=== PATIENT | male | born 1960 | race Caucasian/White ===

== ENCOUNTER 2017-02-25 16:44 | Inpatient (IN) | payer OTHER ==
[~2017-02-25] VITALS: Ht 188 cm; Wt 115.7 kg
--- NOTE | 2017-02-25 17:22 | Emergency Room Report ---
History of Present Illness General Chief Complaint: To Be Triaged Present Illness HPI 56 y/o male c/o request to go to ER by PCP (Dr. Roland Bose MD) for referral to social services specialist. 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 Patient was told to go to [facility] where is received a transfer for treatment of his tumors to [facility]. Patient states [facility] is going to shut down so he left that facility and is now here so he can speak with a social services specialist for placement. Patient states treatments for his tumors are not working. States he's currently on Cipro 500mg 1 tab PO BID and Keflex 500mg 1 tab PO BID. Patient is taking tramadol 50mg w/o relief of sxs. Allergies: Coded Allergies: No Known Allergies (Unverified , 02/25/17) Patient History Past Medical History: see triage record Past Surgical History: none Pertinent Family History: none Immunizations: UTD Reviewed Nursing Documentation: PMH: Agreed, PSxH: Agreed Review of Systems All Other Systems: negative except mentioned in HPI Physical Exam Vital Signs Date Time Temp Pulse Resp B/P (MAP) Pulse Ox O2 Delivery O2 Flow Rate FiO2 02/25/17 17:10 98.4 88 14 128/80 96 Room Air Sp02 EP Interpretation: reviewed, normal General Appearance: no apparent distress, alert, GCS 15, non-toxic Head: normocephalic, atraumatic Eyes: bilateral eye normal inspection, bilateral eye PERRL ENT: hearing grossly normal, normal pharynx, no angioedema, normal voice Neck: full range of motion, supple/symm/no masses Respiratory: chest non-tender, lungs clear, normal breath sounds, speaking full sentences Cardiovascular #1: normal peripheral pulses, regular rate, rhythm, no edema Musculoskeletal: back normal, gait/station normal, normal range of motion, non- tender, calf tenderness Neurologic: alert, oriented x3, responsive, motor strength/tone normal, sensory intact, speech normal Psychiatric: judgement/insight normal, memory normal, mood/affect normal, no suicidal/homicidal ideation Skin: normal color, no rash, warm/dry, well hydrated, other - two ulcers with local erythema and induration or right ankle / heal and one on left calf. +TTP Lymphatic: no adenopathy Medical Decision Making PA Attestation Dr. Turner is my supervising physician with whom patient management has been discussed with. Diagnostic Impression: Primary Impression: Cellulitis and abscess of left lower extremity Additional Impression: Cellulitis and abscess of right lower extremity ER Course Pt. presents to the ED c/o tumors Ddx considered but are not limited to dermatitis, insect sting, viral exanthem, herpez zoster, cellulitis, abscess Vital signs: are WNL, pt. is afebrile H&PE are most consistent with cellulitis ORDERS / ED INTERVENTIONS: My Orders - LIZ SPRAGUE Procedure Category Date Status Time Cbc W/ Differential LAB 02/25/17 Complete 17:29 CMP LAB 02/25/17 Complete 17:29 Culture Blood NICO 02/25/17 In Process 17:29 Culture Wound W Gram NICO 02/25/17 In Process Stain 17:29 Vancomycin PHA 02/25/17 Complete (Vancomycin) 17:30 Morphine Sulfate PHA 02/25/17 Complete (Morphine Sulfate) 17:30 Vancomycin PHA 02/25/17 Complete (Vancomycin) 18:28 Patient has wounds that are not responding to keflex and cipro and will need IV antibiotics. Patient admitted to [facility] and care transferred to Dr. Meléndez at 6 :59pm Disposition: ADMITTED INPATIENT Condition: Serious Scripts No Active Prescriptions or Reported Meds LIZ SPRAGUE Feb 25, 2017 17:22
[2017-02-25] MEDS ORDERED: Vancomycin 1 GM in NS 275 ML IV ONE (17:30)
[2017-02-25] MEDS ORDERED: Morphine Sulfate 4mg/ml Inj IVP ONE (17:30)
[2017-02-25 18:10] LABS: MEAN CORPUSCULAR HEMOGLOBIN 30.3 PG (27.0-31.0); MEAN CORPUSCULAR HGB CONC 33.3 G/DL (32.0-36.0); MEAN CORPUSCULAR VOLUME 91 FL (80-99); MEAN PLATELET VOLUME 5.6 FL (6.5-10.1); PLATELET COUNT 301 K/UL (150-450); RED BLOOD COUNT 5.04 M/UL (4.70-6.10); RED CELL DISTRIBUTION WIDTH 11.5 % (11.6-14.8); WHITE BLOOD COUNT 12.1 K/UL (4.8-10.8)
[2017-02-25 18:20] VITALS: BP 128/80
[2017-02-25 18:21] LABS: ANION GAP 6 mmol/L (5-15); CALCIUM 8.6 MG/DL (8.5-10.1); CARBON DIOXIDE 29 MMOL/L (21-32); CHLORIDE 102 MMOL/L (98-107); CREATININE 1.3 MG/DL (0.55-1.30); GLOMERULAR FILTRATION RATE 56.7 mL/min (>60); POTASSIUM 4.5 MMOL/L (3.5-5.1); SODIUM 137 MMOL/L (136-145)
[2017-02-25 18:26] LABS: ALANINE AMINOTRANSFERASE 22 U/L (12-78); ALBUMIN/GLOBULIN RATIO 0.9 (1.0-2.7); ASPARTATE AMINO TRANSFERASE 21 U/L (15-37); TOTAL PROTEIN 7.4 G/DL (6.4-8.2)
[2017-02-25] MEDS ORDERED: Vancomycin 1gm inj IVPB ONE (18:28)
[2017-02-25 19:07] LABS: EOSINOPHILS % (MANUAL) 24 % (0-3); LYMPHOCYTES % (MANUAL) 20 % (20-45); NEUTROPHILS % (MANUAL) 48 % (45-75); PLATELET MORPHOLOGY NORMAL; TOTAL CELLS COUNTED 100
[2017-02-25 19:08] LABS: REACTIVE LYMPHOCYTES OCCASIONAL
[2017-02-25 19:37] LABS: BAND NEUTROPHILS % (MANUAL) 0 % (0-8); BASOPHILS % (MANUAL) 0 % (0-2); PLATELET ESTIMATE ADEQUATE
[2017-02-25 21:55] VITALS: BP 119/70
[2017-02-25] MEDS ORDERED: Miralax 17gm pkt ORAL PRN (22:15)
[2017-02-25] MEDS ORDERED: Albuterol/Ipratropium 3ml neb HHN PRN (22:15)
[2017-02-25] MEDS ORDERED: Nitroglycerin Subl 0.4mg tab SL PRN (22:15)
[2017-02-26] MEDS ORDERED: Vancomycin 1 GM in D5W 275 ML IV SCH (00:30)
[2017-02-26 00:36] VITALS: BP 112/63
[2017-02-26 04:45] VITALS: BP 122/71
[2017-02-26] MEDS: Vancomycin 1.5 GM/D5W 250ML IVPB SCH ×2 (06:15→17:56)
[2017-02-26 08:00] VITALS: BP 108/66
[2017-02-26 08:41] LABS: MEAN CORPUSCULAR HEMOGLOBIN 31.1 PG (27.0-31.0); MEAN CORPUSCULAR HGB CONC 34.2 G/DL (32.0-36.0); MEAN CORPUSCULAR VOLUME 91 FL (80-99); MEAN PLATELET VOLUME 5.8 FL (6.5-10.1); PLATELET COUNT 272 K/UL (150-450); RED BLOOD COUNT 4.81 M/UL (4.70-6.10); RED CELL DISTRIBUTION WIDTH 11.5 % (11.6-14.8); WHITE BLOOD COUNT 11.2 K/UL (4.8-10.8)
[2017-02-26] MEDS: Cefepime HCl 2 GM in D5W 110 ML IV SCH ×2 (09:10→20:50)
[2017-02-26] MEDS: Heparin 5000 units/ml inj SUBQ SCH ×2 (09:11→20:47)
[2017-02-26 09:42] LABS: ALANINE AMINOTRANSFERASE 19 U/L (12-78); ALBUMIN/GLOBULIN RATIO 0.9 (1.0-2.7); ANION GAP 10 mmol/L (5-15); ASPARTATE AMINO TRANSFERASE 22 U/L (15-37); CALCIUM 8.4 MG/DL (8.5-10.1); CARBON DIOXIDE 25 MMOL/L (21-32); CHLORIDE 105 MMOL/L (98-107); CREATININE 1.2 MG/DL (0.55-1.30); GLOMERULAR FILTRATION RATE > 60 mL/min (>60); POTASSIUM 4.4 MMOL/L (3.5-5.1); SODIUM 139 MMOL/L (136-145); TOTAL PROTEIN 6.8 G/DL (6.4-8.2)
[2017-02-26 10:12] LABS: BAND NEUTROPHILS % (MANUAL) 0 % (0-8); BASOPHILS % (MANUAL) 0 % (0-2); EOSINOPHILS % (MANUAL) 17 % (0-3); LYMPHOCYTES % (MANUAL) 22 % (20-45); NEUTROPHILS % (MANUAL) 57 % (45-75); PLATELET ESTIMATE ADEQUATE; PLATELET MORPHOLOGY NORMAL; TOTAL CELLS COUNTED 100
--- NOTE | 2017-02-26 10:47 | History and Physical ---
History of Present Illness General Date patient seen: Feb 26, 2017 Reason for Hospitalization: General Complaint Present Illness HPI 56 year old male with hx of lymphedema of tumors, 2 in right LE and 1 in LLE presented to ER with CC of redness and swelling areas in both feet. he's currently on Cipro 500mg 1 tab PO BID and Keflex 500mg 1 tab PO BID. Apparently oral abx are not effective. Allergies: Coded Allergies: No Known Allergies (Unverified , 02/25/17) Medication History No Active Prescriptions or Reported Meds Patient History Healthcare decision maker Resuscitation status Advanced Directive on File Past Medical/Surgical History Past Medical/Surgical History: (1) Cellulitis and abscess of right lower extremity Review of Systems Constitutional: Reports: no symptoms All Other Systems: negative except mentioned in HPI Physical Exam General Appearance: WD/WN Lines, tubes and drains: peripheral, central line HEENT: normocephalic, atraumatic Neck: non-tender, normal alignment Respiratory/Chest: chest wall non-tender, lungs clear Breasts: no masses Cardiovascular/Chest: normal peripheral pulses Abdomen: normal bowel sounds Genitourinary/Rectal: normal genital exam Extremities: normal range of motion Last 24 Hour Vital Signs Date Time Temp Pulse Resp B/P (MAP) Pulse Ox O2 Delivery O2 Flow Rate FiO2 02/26/17 08:00 98.3 64 18 108/66 97 Room Air 02/26/17 07:25 67 20 Room Air 21 02/26/17 04:45 98.2 72 20 122/71 95 Room Air 02/26/17 00:36 98.1 68 21 112/63 96 Room Air 02/25/17 21:55 98.1 77 19 119/70 95 Room Air 02/25/17 21:30 98 16 125/79 98 02/25/17 19:22 98.4 02/25/17 18:20 98.4 14 128/80 96 Room Air 02/25/17 17:10 98.4 88 14 128/80 96 Room Air Intake and Output 02/26/17 02/27/17 19:00 07:00 Intake Total 240 ml Balance 240 ml Intake Oral 240 ml Laboratory Tests Test 02/25/17 17:45 02/26/17 07:00 White Blood Count 12.1 K/UL (4.8-10.8) H 11.2 K/UL (4.8-10.8) H Red Blood Count 5.04 M/UL (4.70-6.10) 4.81 M/UL (4.70-6.10) Hemoglobin 15.2 G/DL (14.2-18.0) 14.9 G/DL (14.2-18.0) Hematocrit 45.7 % (42.0-52.0) 43.7 % (42.0-52.0) Mean Corpuscular Volume 91 FL (80-99) 91 FL (80-99) Mean Corpuscular Hemoglobin 30.3 PG (27.0-31.0) 31.1 PG (27.0-31.0) H Mean Corpuscular Hemoglobin Concent 33.3 G/DL (32.0-36.0) 34.2 G/DL (32.0-36.0) Red Cell Distribution Width 11.5 % (11.6-14.8) L 11.5 % (11.6-14.8) L Platelet Count 301 K/UL (150-450) 272 K/UL (150-450) Mean Platelet Volume 5.6 FL (6.5-10.1) L 5.8 FL (6.5-10.1) L Neutrophils (%) (Auto) % (45.0-75.0) % (45.0-75.0) Lymphocytes (%) (Auto) % (20.0-45.0) % (20.0-45.0) Monocytes (%) (Auto) % (1.0-10.0) % (1.0-10.0) Eosinophils (%) (Auto) % (0.0-3.0) % (0.0-3.0) Basophils (%) (Auto) % (0.0-2.0) % (0.0-2.0) Differential Total Cells Counted 100 100 Neutrophils % (Manual) 48 % (45-75) 57 % (45-75) Lymphocytes % (Manual) 20 % (20-45) 22 % (20-45) Monocytes % (Manual) 8 % (1-10) 4 % (1-10) Eosinophils % (Manual) 24 % (0-3) H 17 % (0-3) H Basophils % (Manual) 0 % (0-2) 0 % (0-2) Band Neutrophils 0 % (0-8) 0 % (0-8) Reactive Lymphocytes Occasional Platelet Estimate Adequate Adequate Platelet Morphology Normal Normal Red Blood Cell Morphology Normal Normal Sodium Level 137 MMOL/L (136-145) 139 MMOL/L (136-145) Potassium Level 4.5 MMOL/L (3.5-5.1) 4.4 MMOL/L (3.5-5.1) Chloride Level 102 MMOL/L (98-107) 105 MMOL/L (98-107) Carbon Dioxide Level 29 MMOL/L (21-32) 25 MMOL/L (21-32) Anion Gap 6 mmol/L (5-15) 10 mmol/L (5-15) Blood Urea Nitrogen 23 mg/dL (7-18) H 22 mg/dL (7-18) H Creatinine 1.3 MG/DL (0.55-1.30) 1.2 MG/DL (0.55-1.30) Estimat Glomerular Filtration Rate 56.7 mL/min (>60) > 60 mL/min (>60) Glucose Level 91 MG/DL (74-106) 102 MG/DL (74-106) Calcium Level 8.6 MG/DL (8.5-10.1) 8.4 MG/DL (8.5-10.1) L Total Bilirubin 0.6 MG/DL (0.2-1.0) 0.3 MG/DL (0.2-1.0) Aspartate Amino Transf (AST/SGOT) 21 U/L (15-37) 22 U/L (15-37) Alanine Aminotransferase (ALT/SGPT) 22 U/L (12-78) 19 U/L (12-78) Alkaline Phosphatase 79 U/L (46-116) 68 U/L (46-116) Total Protein 7.4 G/DL (6.4-8.2) 6.8 G/DL (6.4-8.2) Albumin 3.6 G/DL (3.4-5.0) 3.2 G/DL (3.4-5.0) L Globulin 3.8 g/dL 3.6 g/dL Albumin/Globulin Ratio 0.9 (1.0-2.7) L 0.9 (1.0-2.7) L Height (Feet): 6 Height (Inches): 2.00 Weight (Pounds): 255 Medications Current Medications Medications (Trade) Dose Ordered Sig/Disha Route PRN Reason Start Time Stop Time Status Last Admin Dose Admin Acetaminophen (Tylenol) 650 mg Q4H PRN ORAL Mild Pain/Temp > 100.5 02/26/17 10:15 03/28/17 10:14 UNV Albuterol/ Ipratropium (Albuterol/ Ipratropium) 3 ml Q4H PRN HHN Shortness of Breath 02/25/17 22:15 03/02/17 22:14 Cefepime HCl 2 gm/ Dextrose 110 ml @ 220 mls/hr EVERY 12 HOURS IV 02/26/17 09:00 03/05/17 08:59 02/26/17 09:10 Dextrose (Dextrose 50%) STAT PRN IV Hypoglycemia 02/25/17 22:15 03/27/17 22:14 Heparin Sodium (Porcine) (Heparin 5000 units/ml) 5,000 units EVERY 12 HOURS SUBQ 02/26/17 09:00 03/28/17 08:59 02/26/17 09:11 Nitroglycerin (Ntg) 0.4 mg Every 5 Minutes PRN SL Prn Chest Pain 02/25/17 22:15 03/27/17 22:14 Ondansetron HCl (Zofran) 4 mg Q6H PRN IVP Nausea & Vomiting 02/25/17 22:15 03/27/17 22:14 Polyethylene Glycol (Miralax) 17 gm DAILYPRN PRN ORAL Constipation 02/25/17 22:15 03/27/17 22:14 Temazepam (Restoril) 15 mg HSPRN PRN ORAL Insomnia 02/25/17 22:15 03/04/17 22:14 Vancomycin HCl (Vanco rx to dose) 1 ea DAILY PRN MISC PER PROTOCOL 02/25/17 22:45 03/27/17 22:44 Vancomycin HCl/ Dextrose 250 ml @ 125 mls/hr Q12H IVPB 02/26/17 07:00 03/03/17 06:59 02/26/17 06:15 Assessment/Plan Problem List: (1) Homelessness ICD Codes: Z59.0 - Homelessness SNOMED: 95564141 (2) Cellulitis and abscess of left lower extremity ICD Codes: L03.116 - Cellulitis of left lower limb; L02.416 - Cutaneous abscess of left lower limb SNOMED: 235718496 Assessment/Plan iv abx wound care social worker health services. PHILOMENA MCCLELLAND Feb 26, 2017 10:47
[2017-02-26 12:00] VITALS: BP 118/65
[2017-02-26] MEDS ORDERED: NS 500ML ONE (15:44)
[2017-02-26] MEDS ORDERED: Tubing IV Secondary IV ONE (15:44)
--- NOTE | 2017-02-26 15:48 | Infectious Diseases Prog Note ---
Assessment/Plan Assessment/Plan ID consult dictated # [id number] Subjective Allergies: Coded Allergies: No Known Allergies (Unverified , 02/25/17) Objective Vital Signs Last 24 Hour Vital Signs Date Time Temp Pulse Resp B/P (MAP) Pulse Ox O2 Delivery O2 Flow Rate FiO2 02/26/17 12:00 98.0 75 20 118/65 98 Room Air 02/26/17 10:51 98.3 02/26/17 08:00 98.3 64 18 108/66 97 Room Air 02/26/17 07:25 67 20 Room Air 21 02/26/17 04:45 98.2 72 20 122/71 95 Room Air 02/26/17 00:36 98.1 68 21 112/63 96 Room Air 02/25/17 21:55 98.1 77 19 119/70 95 Room Air 02/25/17 21:30 98 16 125/79 98 02/25/17 19:22 98.4 02/25/17 18:20 98.4 14 128/80 96 Room Air 02/25/17 17:10 98.4 88 14 128/80 96 Room Air Height (Feet): 6 Height (Inches): 2.00 Weight (Pounds): 255 Laboratory Tests Test 02/25/17 17:45 02/26/17 07:00 White Blood Count 12.1 K/UL (4.8-10.8) H 11.2 K/UL (4.8-10.8) H Red Blood Count 5.04 M/UL (4.70-6.10) 4.81 M/UL (4.70-6.10) Hemoglobin 15.2 G/DL (14.2-18.0) 14.9 G/DL (14.2-18.0) Hematocrit 45.7 % (42.0-52.0) 43.7 % (42.0-52.0) Mean Corpuscular Volume 91 FL (80-99) 91 FL (80-99) Mean Corpuscular Hemoglobin 30.3 PG (27.0-31.0) 31.1 PG (27.0-31.0) H Mean Corpuscular Hemoglobin Concent 33.3 G/DL (32.0-36.0) 34.2 G/DL (32.0-36.0) Red Cell Distribution Width 11.5 % (11.6-14.8) L 11.5 % (11.6-14.8) L Platelet Count 301 K/UL (150-450) 272 K/UL (150-450) Mean Platelet Volume 5.6 FL (6.5-10.1) L 5.8 FL (6.5-10.1) L Neutrophils (%) (Auto) % (45.0-75.0) % (45.0-75.0) Lymphocytes (%) (Auto) % (20.0-45.0) % (20.0-45.0) Monocytes (%) (Auto) % (1.0-10.0) % (1.0-10.0) Eosinophils (%) (Auto) % (0.0-3.0) % (0.0-3.0) Basophils (%) (Auto) % (0.0-2.0) % (0.0-2.0) Differential Total Cells Counted 100 100 Neutrophils % (Manual) 48 % (45-75) 57 % (45-75) Lymphocytes % (Manual) 20 % (20-45) 22 % (20-45) Monocytes % (Manual) 8 % (1-10) 4 % (1-10) Eosinophils % (Manual) 24 % (0-3) H 17 % (0-3) H Basophils % (Manual) 0 % (0-2) 0 % (0-2) Band Neutrophils 0 % (0-8) 0 % (0-8) Reactive Lymphocytes Occasional Platelet Estimate Adequate Adequate Platelet Morphology Normal Normal Red Blood Cell Morphology Normal Normal Sodium Level 137 MMOL/L (136-145) 139 MMOL/L (136-145) Potassium Level 4.5 MMOL/L (3.5-5.1) 4.4 MMOL/L (3.5-5.1) Chloride Level 102 MMOL/L (98-107) 105 MMOL/L (98-107) Carbon Dioxide Level 29 MMOL/L (21-32) 25 MMOL/L (21-32) Anion Gap 6 mmol/L (5-15) 10 mmol/L (5-15) Blood Urea Nitrogen 23 mg/dL (7-18) H 22 mg/dL (7-18) H Creatinine 1.3 MG/DL (0.55-1.30) 1.2 MG/DL (0.55-1.30) Estimat Glomerular Filtration Rate 56.7 mL/min (>60) > 60 mL/min (>60) Glucose Level 91 MG/DL (74-106) 102 MG/DL (74-106) Calcium Level 8.6 MG/DL (8.5-10.1) 8.4 MG/DL (8.5-10.1) L Total Bilirubin 0.6 MG/DL (0.2-1.0) 0.3 MG/DL (0.2-1.0) Aspartate Amino Transf (AST/SGOT) 21 U/L (15-37) 22 U/L (15-37) Alanine Aminotransferase (ALT/SGPT) 22 U/L (12-78) 19 U/L (12-78) Alkaline Phosphatase 79 U/L (46-116) 68 U/L (46-116) Total Protein 7.4 G/DL (6.4-8.2) 6.8 G/DL (6.4-8.2) Albumin 3.6 G/DL (3.4-5.0) 3.2 G/DL (3.4-5.0) L Globulin 3.8 g/dL 3.6 g/dL Albumin/Globulin Ratio 0.9 (1.0-2.7) L 0.9 (1.0-2.7) L Current Medications Medications (Trade) Dose Ordered Sig/Disha Route PRN Reason Start Time Stop Time Status Last Admin Dose Admin Acetaminophen (Tylenol) 650 mg Q4H PRN ORAL Mild Pain/Temp > 100.5 02/26/17 10:15 03/28/17 10:14 Albuterol/ Ipratropium (Albuterol/ Ipratropium) 3 ml Q4H PRN HHN Shortness of Breath 02/25/17 22:15 03/02/17 22:14 Cefepime HCl 2 gm/ Dextrose 110 ml @ 220 mls/hr EVERY 12 HOURS IV 02/26/17 09:00 03/05/17 08:59 02/26/17 09:10 Dextrose (Dextrose 50%) STAT PRN IV Hypoglycemia 02/25/17 22:15 03/27/17 22:14 Heparin Sodium (Porcine) (Heparin 5000 units/ml) 5,000 units EVERY 12 HOURS SUBQ 02/26/17 09:00 03/28/17 08:59 02/26/17 09:11 Nitroglycerin (Ntg) 0.4 mg Every 5 Minutes PRN SL Prn Chest Pain 02/25/17 22:15 03/27/17 22:14 Ondansetron HCl (Zofran) 4 mg Q6H PRN IVP Nausea & Vomiting 02/25/17 22:15 03/27/17 22:14 Polyethylene Glycol (Miralax) 17 gm DAILYPRN PRN ORAL Constipation 02/25/17 22:15 03/27/17 22:14 Temazepam (Restoril) 15 mg HSPRN PRN ORAL Insomnia 02/25/17 22:15 03/04/17 22:14 Vancomycin HCl (Vanco rx to dose) 1 ea DAILY PRN MISC PER PROTOCOL 02/25/17 22:45 03/27/17 22:44 Vancomycin HCl/ Dextrose 250 ml @ 125 mls/hr Q12H IVPB 02/26/17 07:00 03/03/17 06:59 02/26/17 06:15 MARK ORTEGA Feb 26, 2017 15:48
[2017-02-26 16:00] VITALS: BP 129/79
--- NOTE | 2017-02-26 16:45 | Consultation ---
DATE OF CONSULTATION: 02/26/2017 INFECTIOUS DISEASE CONSULTATION This consult is for coverage of Dr. Maguire. PRIMARY ATTENDING PHYSICIAN: Nishant Pedroza M.D. REASON FOR CONSULTATION: Cellulitis of lower extremity more in the left side. HISTORY OF PRESENT ILLNESS: The patient is a 56-year-old white male with history of lymphedema admitted last night because of skin lesion, redness, pain and swelling. The patient was on Cipro and Keflex. Apparently, the antibiotics were not effective. PAST MEDICAL HISTORY: Lymphedema of legs. MEDICATIONS: Getting Tylenol, heparin, cefepime, vancomycin, nitroglycerin, temazepam, Zofran, MiraLAX, and Duo-Neb inhaler. ALLERGY: No known drug allergy. SOCIAL HISTORY: Denies alcohol, drug use or smoking. Homeless. PHYSICAL EXAMINATION: GENERAL APPEARANCE: No acute distress. Seems obese. VITAL SIGNS: Temperature is 98 degrees, pulse 75, blood pressure is 118/65. HEAD AND NECK: [place] conjunctivae. HEART: S1 and S2 regular. LUNGS: Clear. ABDOMEN: Soft and nontender. Bowel sounds present. EXTREMITIES: No significant edema. He had two skin lesion in the left lower extremity, likely cellulitis, one skin lesion in right lower extremity. LABORATORY AND DIAGNOSTIC DATA: Sodium 139, potassium 4.4, chloride 105, bicarbonate 25, BUN 22, creatinine 1.2 and glucose 102. WBC 11.2, hemoglobin 14.9, hematocrit 42.7 and platelet 272. IMPRESSION: 1. Purulent cellulitis of the lower extremities, more in the left side. 2. History of lymphedema. RECOMMENDATION: We will continue with cefepime and vancomycin. We will follow up the cultures. I thank, Dr. Pedroza, for involving me in the care of this patient. Vega Shepherd M.D. DR: MIRA JOB#: [id number] CC:
[2017-02-26 20:00] VITALS: BP 115/61
[2017-02-26] MEDS: Norco 5mg/325mg tab ORAL PRN (20:51)
[2017-02-27] VITALS: BP 114/68
[2017-02-27 04:00] VITALS: BP 116/65
[2017-02-27 08:00] VITALS: BP 113/66
[2017-02-27] MEDS: Heparin 5000 units/ml inj SUBQ SCH ×2 (09:00→20:22)
[2017-02-27] MEDS: Norco 5mg/325mg tab ORAL PRN ×2 (09:06→20:20)
[2017-02-27] MEDS: Vancomycin 1.5 GM/D5W 250ML IVPB SCH ×2 (09:07→19:21)
--- NOTE | 2017-02-27 11:02 | Wound Care Consultation ---
Wound Assessment Wound Assessment #1: Wound Number: 1 Wound Present on Admission: Yes New Wound: No Status Change of Wound: No Wound Location Body Site Modif: right, lower, posterior Wound Location Body Site: leg Wound Type: other - open wound with cellulitis Isa Test: Does not Isa Wound Thickness: Full Thickness Wound Length: 6.0 Wound Width: 2.0 Wound Depth: utd Percent of Wound Bed Yellow/Wh: 80 Percent of Wound Black/Brown: 20 Wound Drainage Description: Serosanguineous Wound Drainage Amount: Moderate Wound Drainage Odor: None/Absent Tissue Surrounding Wound: Macerated Wound General Appearance: Reddened, Draining, Necrotic Wound Assessment #2: Wound Number: 2 Wound Present on Admission: Yes New Wound: No Status Change of Wound: No Wound Location Body Site Modif: right, dorsal Wound Location Body Site: foot Wound Type: other - scattered open and scabbed wounds with cellulitis Isa Test: Does not Isa Wound Thickness: Full Thickness Wound Length: 5.0 - scattered Wound Width: 5.0 - scattered Wound Depth: utd Percent of Wound [place]/Red: 80 Percent of Wound Black/Brown: 20 Wound Drainage Description: Serosanguineous Wound Drainage Amount: Scant Wound Drainage Odor: None/Absent Tissue Surrounding Wound: Erythemic Wound General Appearance: Reddened Wound Assessment #3: Wound Number: 3 Wound Present on Admission: Yes New Wound: No Status Change of Wound: No Wound Location Body Site Modif: left, lateral Wound Location Body Site: foot Wound Type: other - wound etiology unknown Isa Test: Does not Isa Pressure Ulcer Stage: Unstageable - thick yellow dry scab Wound Thickness: Full Thickness Wound Length: 2.0 Wound Width: 2.0 Wound Depth: utd Percent of Wound Bed Yellow/Wh: 100 Wound Drainage Amount: None Wound Drainage Odor: None/Absent Tissue Surrounding Wound: Erythemic Wound General Appearance: Reddened, Necrotic Wound Comment #1 Right posterior lower leg open full thickness wound with cellulitis. #2 Right dorsal foot open and scabbed wounds with cellulitis. #3 Left foot ulcer unstageable open wound. Recommendation -local wound care as ordered. -Keep clean and dry. -Offload affected sites. -Optimize nutrition. -turn and reposition. -Avoid shear and friction -Assess and notify MD for any changes of condition to skin noted. THAIS CHAPA Feb 27, 2017 11:02
--- NOTE | 2017-02-27 11:09 | Infectious Diseases Prog Note ---
Assessment/Plan Assessment/Plan A: Cellulitis of the lower extremities, Wnd Cx:Staph A left > Rt History of lymphedema Plan: continue with cefepime and vancomycin d # 2 monitor Cultures monitor CBC monitor BMP Subjective Constitutional: Denies: no symptoms, fever, chills, fatigue, anorexia, drenching sweats, other Allergies: Coded Allergies: No Known Allergies (Unverified , 02/25/17) Objective Vital Signs Last 24 Hour Vital Signs Date Time Temp Pulse Resp B/P (MAP) Pulse Ox O2 Delivery O2 Flow Rate FiO2 02/27/17 10:05 98.0 02/27/17 08:00 98.0 60 20 113/66 97 Room Air 02/27/17 07:59 69 18 Room Air 02/27/17 04:00 96.8 59 19 116/65 97 Room Air 02/27/17 00:00 97.3 72 18 114/68 97 Room Air 02/26/17 23:49 71 20 Room Air 21 02/26/17 20:00 97.9 69 20 115/61 95 Room Air 02/26/17 17:56 98.0 02/26/17 16:00 98.0 73 20 129/79 99 Room Air 02/26/17 12:00 98.0 75 20 118/65 98 Room Air Height (Feet): 6 Height (Inches): 2.00 Weight (Pounds): 255 HEENT: anicteric Respiratory/Chest: no respiratory distress Cardiovascular: regularly irregular Abdomen: soft, non tender Microbiology Date/Time Source Procedure Growth Status 02/25/17 18:36 Blood Blood Culture - Preliminary NO GROWTH AFTER 24 HOURS Resulted 02/25/17 18:15 Blood Blood Culture - Preliminary NO GROWTH AFTER 24 HOURS Resulted Laboratory Tests Test 02/27/17 06:30 Vancomycin Level Trough 11.8 ug/mL (5.0-12.0) Current Medications Medications (Trade) Dose Ordered Sig/Disha Route PRN Reason Start Time Stop Time Status Last Admin Dose Admin Acetaminophen (Tylenol) 650 mg Q4H PRN ORAL Mild Pain/Temp > 100.5 02/26/17 10:15 03/28/17 10:14 02/26/17 16:57 Acetaminophen/ Hydrocodone Bitart (Rena Lara 5/325) 1 tab Q6H PRN ORAL For Moderate to Severe Pain 02/26/17 19:45 11/19/17 19:44 02/27/17 09:06 Albuterol/ Ipratropium (Albuterol/ Ipratropium) 3 ml Q4H PRN HHN Shortness of Breath 02/25/17 22:15 03/02/17 22:14 Cefepime HCl 2 gm/ Dextrose 110 ml @ 220 mls/hr EVERY 12 HOURS IV 02/26/17 09:00 03/05/17 08:59 02/26/17 20:50 Dextrose (Dextrose 50%) STAT PRN IV Hypoglycemia 02/25/17 22:15 03/27/17 22:14 Heparin Sodium (Porcine) (Heparin 5000 units/ml) 5,000 units EVERY 12 HOURS SUBQ 02/26/17 09:00 03/28/17 08:59 02/26/17 20:47 Nitroglycerin (Ntg) 0.4 mg Every 5 Minutes PRN SL Prn Chest Pain 02/25/17 22:15 03/27/17 22:14 Ondansetron HCl (Zofran) 4 mg Q6H PRN IVP Nausea & Vomiting 02/25/17 22:15 03/27/17 22:14 Polyethylene Glycol (Miralax) 17 gm DAILYPRN PRN ORAL Constipation 02/25/17 22:15 03/27/17 22:14 Temazepam (Restoril) 15 mg HSPRN PRN ORAL Insomnia 02/25/17 22:15 03/04/17 22:14 Vancomycin HCl (Vanco rx to dose) 1 ea DAILY PRN MISC PER PROTOCOL 02/25/17 22:45 03/27/17 22:44 Vancomycin HCl/ Dextrose 250 ml @ 125 mls/hr Q12H IVPB 02/26/17 07:00 03/03/17 06:59 02/27/17 09:07 EDUARDO ELLISON M.D. Feb 27, 2017 11:09
[2017-02-27 12:00] VITALS: BP 126/72
[2017-02-27] MEDS: Cefepime HCl 2 GM in D5W 110 ML IV SCH (12:07)
--- NOTE | 2017-02-27 12:46 | Pulmonology Progress Note ---
Assessment/Plan Problems: (1) Homelessness (2) Cellulitis and abscess of left lower extremity Assessment/Plan staph in the wound continue current abx until sensitivity are available. wound care. Subjective ROS Limited/Unobtainable: Yes Allergies: Coded Allergies: No Known Allergies (Unverified , 02/25/17) Objective Last 24 Hour Vital Signs Date Time Temp Pulse Resp B/P (MAP) Pulse Ox O2 Delivery O2 Flow Rate FiO2 02/27/17 10:05 98.0 02/27/17 08:00 98.0 60 20 113/66 97 Room Air 02/27/17 07:59 69 18 Room Air 02/27/17 04:00 96.8 59 19 116/65 97 Room Air 02/27/17 00:00 97.3 72 18 114/68 97 Room Air 02/26/17 23:49 71 20 Room Air 21 02/26/17 20:00 97.9 69 20 115/61 95 Room Air 02/26/17 17:56 98.0 02/26/17 16:00 98.0 73 20 129/79 99 Room Air Intake and Output 02/27/17 02/28/17 19:00 07:00 Intake Total 240 ml Balance 240 ml Intake Oral 240 ml General Appearance: WD/WN Respiratory/Chest: chest wall non-tender, lungs clear Cardiovascular: normal peripheral pulses, normal rate Abdomen: normal bowel sounds, soft, non tender Genitourinary: normal external genitalia Extremities: no clubbing Skin: no lesions Microbiology Date/Time Source Procedure Growth Status 02/25/17 18:36 Blood Blood Culture - Preliminary NO GROWTH AFTER 24 HOURS Resulted 02/25/17 18:15 Blood Blood Culture - Preliminary NO GROWTH AFTER 24 HOURS Resulted 02/25/17 19:30 Leg Right Gram Stain Pending Resulted 02/25/17 19:30 Wound Culture - Preliminary Staphylococcus Aureus Resulted Laboratory Tests 02/27/17 06:30: Vancomycin Level Trough 11.8 Current Medications Medications (Trade) Dose Ordered Sig/Disha Route PRN Reason Start Time Stop Time Status Last Admin Dose Admin Acetaminophen (Tylenol) 650 mg Q4H PRN ORAL Mild Pain/Temp > 100.5 02/26/17 10:15 03/28/17 10:14 02/26/17 16:57 Acetaminophen/ Hydrocodone Bitart ([place]da 5/325) 1 tab Q6H PRN ORAL For Moderate to Severe Pain 02/26/17 19:45 03/05/17 19:44 02/27/17 09:06 Albuterol/ Ipratropium (Albuterol/ Ipratropium) 3 ml Q4H PRN HHN Shortness of Breath 02/25/17 22:15 03/02/17 22:14 Cefepime HCl 2 gm/ Dextrose 110 ml @ 220 mls/hr EVERY 12 HOURS IV 02/26/17 09:00 03/05/17 08:59 02/27/17 12:07 Dextrose (Dextrose 50%) STAT PRN IV Hypoglycemia 02/25/17 22:15 03/27/17 22:14 Heparin Sodium (Porcine) (Heparin 5000 units/ml) 5,000 units EVERY 12 HOURS SUBQ 02/26/17 09:00 03/28/17 08:59 02/26/17 20:47 Nitroglycerin (Ntg) 0.4 mg Every 5 Minutes PRN SL Prn Chest Pain 02/25/17 22:15 03/27/17 22:14 Ondansetron HCl (Zofran) 4 mg Q6H PRN IVP Nausea & Vomiting 02/25/17 22:15 03/27/17 22:14 Polyethylene Glycol (Miralax) 17 gm DAILYPRN PRN ORAL Constipation 02/25/17 22:15 03/27/17 22:14 Temazepam (Restoril) 15 mg HSPRN PRN ORAL Insomnia 02/25/17 22:15 03/04/17 22:14 Vancomycin HCl (Vanco rx to dose) 1 ea DAILY PRN MISC PER PROTOCOL 02/25/17 22:45 03/27/17 22:44 Vancomycin HCl/ Dextrose 250 ml @ 125 mls/hr Q12H IVPB 02/26/17 07:00 03/03/17 06:59 02/27/17 09:07 PHILOMENA MCCLELLAND Feb 27, 2017 12:46
[2017-02-27 16:00] VITALS: BP 112/71
[2017-02-27 20:00] VITALS: BP 126/65
[2017-02-27] MEDS: Cefepime HCl 2 GM in D5W 55 ML IV SCH ×2 (20:20→21:13)
--- NOTE | 2017-02-27 20:44 | Diagnostic Imaging Report ---
APPROVED REPORT CPT Code: 17231 BILATERAL: Imaging reveals a patent deep venous system bilaterally. There is no evidence of thrombus within the femoral, popliteal or tibial segments. The greater saphenous veins are also within normal limits. Doppler indicates normal spontaneous flow within these segments.
[2017-02-28] VITALS: BP 94/56
[2017-02-28 04:00] VITALS: BP 108/63
[2017-02-28] MEDS: Vancomycin 1.5 GM/D5W 250ML IVPB SCH (06:39)
[2017-02-28] MEDS: Cefepime HCl 2 GM in D5W 55 ML IV SCH (08:24)
[2017-02-28 08:26] VITALS: BP 118/68
[2017-02-28] MEDS: Heparin 5000 units/ml inj SUBQ SCH (08:31)
--- NOTE | 2017-02-28 09:16 | Infectious Diseases Prog Note ---
Assessment/Plan Assessment/Plan A: Cellulitis of the lower extremities, Wnd Cx:Staph A left > Rt History of lymphedema Plan: continue with cefepime and vancomycin d # 3 / 7, upon DC will change to Bactrim and Keflex to complete the course monitor Cultures monitor CBC monitor BMP Subjective Constitutional: Denies: no symptoms, fever, chills, fatigue, anorexia, drenching sweats, other Allergies: Coded Allergies: No Known Allergies (Unverified , 02/25/17) Objective Vital Signs Last 24 Hour Vital Signs Date Time Temp Pulse Resp B/P (MAP) Pulse Ox O2 Delivery O2 Flow Rate FiO2 02/28/17 08:26 98.3 72 20 118/68 97 Room Air 02/28/17 07:03 65 18 Room Air 21 02/28/17 04:00 98.3 64 18 108/63 94 Room Air 02/28/17 00:00 98.0 91 18 94/56 91 Room Air 02/27/17 21:26 98.6 02/27/17 20:00 98.4 68 18 126/65 93 Room Air 02/27/17 16:00 98.6 62 18 112/71 98 Room Air 02/27/17 12:00 98.5 66 19 126/72 95 Room Air Height (Feet): 6 Height (Inches): 2.00 Weight (Pounds): 255 HEENT: anicteric Respiratory/Chest: no respiratory distress Cardiovascular: no gallop/murmur Abdomen: no organomegaly Microbiology Date/Time Source Procedure Growth Status 02/25/17 18:36 Blood Blood Culture - Preliminary NO GROWTH AFTER 48 HOURS Resulted 02/25/17 18:15 Blood Blood Culture - Preliminary NO GROWTH AFTER 48 HOURS Resulted 02/25/17 20:00 Nasal Nares MRSA Culture - Final NO METHICILLIN RESISTANT STAPH AUREUS... Complete 02/25/17 20:00 Rectum VRE Culture - Final NO VANCOMYCIN RESISTANT ENTEROCOCCUS ... Complete 02/25/17 19:30 Leg Right Gram Stain - Final Resulted 02/25/17 19:30 Wound Culture - Preliminary Staphylococcus Aureus Resulted Current Medications Medications (Trade) Dose Ordered Sig/Disha Route PRN Reason Start Time Stop Time Status Last Admin Dose Admin Acetaminophen (Tylenol) 650 mg Q4H PRN ORAL Mild Pain/Temp > 100.5 02/26/17 10:15 03/28/17 10:14 02/26/17 16:57 Acetaminophen/ Hydrocodone Bitart ([place] 5/325) 1 tab Q6H PRN ORAL For Moderate to Severe Pain 02/26/17 19:45 03/05/17 19:44 02/27/17 20:20 Albuterol/ Ipratropium (Albuterol/ Ipratropium) 3 ml Q4H PRN HHN Shortness of Breath 02/25/17 22:15 03/02/17 22:14 Cefepime HCl 2 gm/ Dextrose 55 ml @ 110 mls/hr EVERY 12 HOURS IV 02/27/17 21:00 03/06/17 20:59 02/28/17 08:24 Dextrose (Dextrose 50%) STAT PRN IV Hypoglycemia 02/25/17 22:15 03/27/17 22:14 Heparin Sodium (Porcine) (Heparin 5000 units/ml) 5,000 units EVERY 12 HOURS SUBQ 02/26/17 09:00 03/28/17 08:59 02/28/17 08:31 Nitroglycerin (Ntg) 0.4 mg Every 5 Minutes PRN SL Prn Chest Pain 02/25/17 22:15 03/27/17 22:14 Ondansetron HCl (Zofran) 4 mg Q6H PRN IVP Nausea & Vomiting 02/25/17 22:15 03/27/17 22:14 Polyethylene Glycol (Miralax) 17 gm DAILYPRN PRN ORAL Constipation 02/25/17 22:15 03/27/17 22:14 Temazepam (Restoril) 15 mg HSPRN PRN ORAL Insomnia 02/25/17 22:15 03/04/17 22:14 Vancomycin HCl (Vanco rx to dose) 1 ea DAILY PRN MISC PER PROTOCOL 02/25/17 22:45 03/27/17 22:44 Vancomycin HCl/ Dextrose 250 ml @ 125 mls/hr Q12H IVPB 02/26/17 07:00 03/03/17 06:59 02/28/17 06:39 EDUARDO ELLISON M.D. Feb 28, 2017 09:16
[2017-02-28] MEDS: Norco 5mg/325mg tab ORAL PRN (10:10)
[2017-02-28 11:33] VITALS: BP 128/64
[2017-02-28] MEDS ORDERED: KEFLEX750 MG PO (14:38)
[2017-02-28] MEDS ORDERED: BACTRIM 400-801 EACH ORAL (14:38)
--- NOTE | 2017-02-28 14:40 | Pulmonology Progress Note ---
Assessment/Plan Problems: (1) Cellulitis and abscess of left lower extremity (2) Homelessness Assessment/Plan staph in the wound continue current abx until sensitivity are available. wound care. dc home with oral abx as recommended by ID Subjective ROS Limited/Unobtainable: No Constitutional: Reports: no symptoms HEENT: Repors: no symptoms Respiratory: Reports: no symptoms Allergies: Coded Allergies: No Known Allergies (Unverified , 02/25/17) Objective Last 24 Hour Vital Signs Date Time Temp Pulse Resp B/P (MAP) Pulse Ox O2 Delivery O2 Flow Rate FiO2 02/28/17 11:33 96.7 64 20 128/64 95 Room Air 02/28/17 11:09 96.7 02/28/17 08:26 98.3 72 20 118/68 97 Room Air 02/28/17 07:03 65 18 Room Air 21 02/28/17 04:00 98.3 64 18 108/63 94 Room Air 02/28/17 00:00 98.0 91 18 94/56 91 Room Air 02/27/17 20:00 98.4 68 18 126/65 93 Room Air 02/27/17 16:00 98.6 62 18 112/71 98 Room Air Intake and Output 02/28/17 03/01/17 19:00 07:00 Intake Total 1040 ml Output Total 1400 ml Balance -360 ml Intake Oral 790 ml IV Total 250 ml Output Urine Total 1400 ml # Voids 2 General Appearance: WD/WN HEENT: normocephalic, atraumatic Respiratory/Chest: chest wall non-tender, normal breath sounds Cardiovascular: normal peripheral pulses, normal rate Abdomen: normal bowel sounds, soft, non tender Microbiology Date/Time Source Procedure Growth Status 02/25/17 18:36 Blood Blood Culture - Preliminary NO GROWTH AFTER 48 HOURS Resulted 02/25/17 18:15 Blood Blood Culture - Preliminary NO GROWTH AFTER 48 HOURS Resulted 02/25/17 20:00 Nasal Nares MRSA Culture - Final NO METHICILLIN RESISTANT STAPH AUREUS... Complete 02/25/17 20:00 Rectum VRE Culture - Final NO VANCOMYCIN RESISTANT ENTEROCOCCUS ... Complete 02/25/17 19:30 Leg Right Gram Stain - Final Resulted 02/25/17 19:30 Wound Culture - Preliminary Staphylococcus Aureus - Mrsa Resulted Current Medications Medications (Trade) Dose Ordered Sig/Disha Route PRN Reason Start Time Stop Time Status Last Admin Dose Admin Acetaminophen (Tylenol) 650 mg Q4H PRN ORAL Mild Pain/Temp > 100.5 02/26/17 10:15 03/28/17 10:14 02/26/17 16:57 Acetaminophen/ Hydrocodone Bitart ([place] 5/325) 1 tab Q6H PRN ORAL For Moderate to Severe Pain 02/26/17 19:45 03/05/17 19:44 02/28/17 10:10 Albuterol/ Ipratropium (Albuterol/ Ipratropium) 3 ml Q4H PRN HHN Shortness of Breath 02/25/17 22:15 03/02/17 22:14 Cefepime HCl 2 gm/ Dextrose 55 ml @ 110 mls/hr EVERY 12 HOURS IV 02/27/17 21:00 03/06/17 20:59 02/28/17 08:24 Dextrose (Dextrose 50%) STAT PRN IV Hypoglycemia 02/25/17 22:15 03/27/17 22:14 Heparin Sodium (Porcine) (Heparin 5000 units/ml) 5,000 units EVERY 12 HOURS SUBQ 02/26/17 09:00 03/28/17 08:59 02/28/17 08:31 Nitroglycerin (Ntg) 0.4 mg Every 5 Minutes PRN SL Prn Chest Pain 02/25/17 22:15 03/27/17 22:14 Ondansetron HCl (Zofran) 4 mg Q6H PRN IVP Nausea & Vomiting 02/25/17 22:15 03/27/17 22:14 Polyethylene Glycol (Miralax) 17 gm DAILYPRN PRN ORAL Constipation 02/25/17 22:15 03/27/17 22:14 Temazepam (Restoril) 15 mg HSPRN PRN ORAL Insomnia 02/25/17 22:15 03/04/17 22:14 Vancomycin HCl (Vanco rx to dose) 1 ea DAILY PRN MISC PER PROTOCOL 02/25/17 22:45 03/27/17 22:44 Vancomycin HCl/ Dextrose 250 ml @ 125 mls/hr Q12H IVPB 02/26/17 07:00 03/03/17 06:59 02/28/17 06:39 PHILOMENA MCCLELLAND Feb 28, 2017 14:40
[2017-02-28 15:34] VITALS: BP 120/67
--- NOTE | 2017-03-02 11:19 | Discharge Summary ---
Discharge Summary Hospital Course Date of Admission Feb 25, 2017 at 21:21 Date of Discharge Feb 28, 2017 at 15:45 Admitting Diagnosis CELLULITIS HPI Ethan Murry is a 56 year old male who was admitted on Feb 25, 2017 at 21: 21 for Cellulitis Hospital Course [id number] Discharge Discharge Disposition Patient was discharged to Home (01) Discharge Diagnoses: Jonelle Aguilera NP Mar 02, 2017 11:19
--- NOTE | 2017-03-02 20:45 | Discharge Summary 2 SIG ---
DATE OF ADMISSION: 02/25/2017 DATE OF DISCHARGE: 02/28/2017 REGISTER REPAIRER: Osiel Maguire M.D. BRIEF HOSPITAL COURSE: The patient is a 56-year-old male with history of lymphedema, presented to ED for complaints of redness and swelling on both feet. He is currently on ciprofloxacin 500 mg b.i.d. and Keflex 500 mg p.o. b.i.d. Apparently, outpatient antibiotics were not effective. On evaluation at ED, he had leukocytosis. He was started on IV antibiotics and was admitted to medical floor. He was seen by wound care nurse. Wound care was rendered. He had venous duplex of lower extremity that was negative for DVT. Wound culture done showed growth of Staphylococcus MRSA. He was given IV vancomycin and cefepime. He was eventually cleared for discharge to continue p.o. antibiotics, Bactrim and Keflex to complete 7-day antibiotic treatment. FINAL DIAGNOSES: 1. Acute cellulitis and abscess of lower extremity. 2. Homelessness. 3. Lymphedema of lower extremities. DISCHARGE DISPOSITION: The patient was discharged home. DISCHARGE MEDICATIONS: Continue with the Keflex 750 mg p.o. q.8 hours for four more days and Bactrim 400/80 one tab p.o. x4 more days. FOLLOWUP: Follow up with PCP, Dr. Bose in a week. Nishant Pedroza M.D. I have been assigned to dictate discharge summary on this account and I was not involved in the patient's management. Jonelle Aguilera N.P. DR: HANNA JOB#: [id number] CC: JAZMINE
== END 2017-02-28 15:45 | disposition home or self-care (01) | DRG 383 ==
LOC: EDBEDREQ 17:30 → EMR 18:06 → EDBEDREQ 20:51 → 3E 21:21
DX: L03.116 Cellulitis of left lower limb (principal); B95.62 Methicillin resistant Staphylococcus aureus infection as the cause of diseases classified elsewhere; L03.115 Cellulitis of right lower limb; I89.0 Lymphedema, not elsewhere classified; Z59.0 Homelessness
CPT/HCPCS: 36415; 80053; 80202; 85007; 85025; 87040; 87070; 87081; 87181; 87205; 93970; 94664; 99285

== ENCOUNTER 2017-04-01 00:03 | Emergency (ER) | payer OTHER ==
[~2017-04-01] VITALS: Ht 188 cm; Wt 115.7 kg
[~2017-04-01 00:03] MED LIST: BACTRIM 400-801 EACH ORAL; KEFLEX750 MG PO
[2017-04-01] MEDS ORDERED: PLAVIX75 MG ORAL (00:45)
--- NOTE | 2017-04-01 00:45 | Emergency Room Report ---
History of Present Illness General Chief Complaint: General Complaint Source: Patient Present Illness HPI Is a 56-year-old male who was called in by primary care for total occlusion of his femoral artery. He was done an ultrasound today. Patient had complaining of right leg pain and ultrasound was ordered. Denies any fever chills denies any nausea vomiting. Complaining of the pain as an achy pain is been ongoing for several months. No other complaint. Denies any fever chills denies any nausea vomiting or Allergies: Coded Allergies: No Known Allergies (Unverified , 02/25/17) Patient History Past Medical History: see triage record, old chart reviewed Past Surgical History: other Pertinent Family History: none Social History: Denies: smoking Immunizations: other Reviewed Nursing Documentation: PMH: Agreed, PSxH: Agreed Nursing Documentation-PMH Hx Cardiac Problems: Yes - lymphedema Hx Cancer: No Hx Gastrointestinal Problems: No Hx Neurological Problems: No Review of Systems Eye: Denies: eye pain, blurred vision ENT: Denies: ear pain, nose congestion, throat swelling Respiratory: Denies: cough, shortness of breath Cardiovascular: Denies: chest pain, palpitations Gastrointestinal: Denies: abdominal pain, diarrhea, nausea, vomiting Musculoskeletal: Denies: back pain, joint pain Skin: Denies: rash Neurological: Denies: headache, numbness Endocrine: Denies: increased thirst, increased urine Hematologic/Lymphatic: Denies: easy bruising All Other Systems: negative except mentioned in HPI Physical Exam Vital Signs Date Time Temp Pulse Resp B/P (MAP) Pulse Ox O2 Delivery O2 Flow Rate FiO2 04/01/17 00:09 97.2 82 16 130/86 97 Room Air vitals normal Sp02 EP Interpretation: reviewed, normal General Appearance: well appearing, no apparent distress, alert Head: normocephalic, atraumatic Eyes: bilateral eye PERRL, bilateral eye EOMI ENT: hearing grossly normal, normal pharynx Neck: full range of motion, supple, no meningismus Respiratory: chest non-tender, lungs clear, normal breath sounds Cardiovascular #1: regular rate, rhythm, no murmur Gastrointestinal: normal bowel sounds, non tender, no mass, no organomegaly, no bruit, non-distended Musculoskeletal: back normal, gait/station normal, normal range of motion, other - Right leg: Good femoral pulse, popliteal, dorsalis this and posterior tibialis pulses. 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 He has good reconstitution of flow in the distal portion. He has biphasic flow seen in both anterior and posterior tibial arteries. He has no evidence of acute occlusion. I discussed the case with Dr. Bose who got the report as an acute arterial occlusion. This is the reason why he sent the patient in. This was 6 hours ago. We'll put him on Plavix and discharge home. He will get vascular surgical consultation on Monday. Last Vital Signs Date Time Temp Pulse Resp B/P (MAP) Pulse Ox O2 Delivery O2 Flow Rate FiO2 04/01/17 00:09 97.2 82 16 130/86 97 Room Air Status: unchanged Disposition: HOME, SELF-CARE Condition: Stable Scripts Clopidogrel Bisulfate* (PLAVIX*) 75 Mg Tablet 75 MG ORAL DAILY, #30 TAB Prov: KELLY ATKINS M.D. 04/01/17 Referrals: NOT CHOSEN IPA/,REFERRING (PCP) Additional Instructions: Followup with your primary care doctor on Monday. He will make referral to see vascular surgeon. Return if symptom worsen. KELLY ATKINS M.D. Apr 01, 2017 00:45
[2017-04-01 01:00] VITALS: BP 130/86
== END 2017-04-01 01:01 | disposition home or self-care (01) ==
LOC: EMR 00:39
DX: I77.1 Stricture of artery (principal); M79.604 Pain in right leg
CPT/HCPCS: 99283